=== PATIENT | female | born 1990 | race Caucasian/White ===

== ENCOUNTER 2018-02-09 06:50 | Emergency (ER) | payer OTHER ==
[~2018-02-09] VITALS: Ht 157.5 cm; Wt 93.0 kg
[2018-02-09 06:56] VITALS: BP_SYST 135
[2018-02-09 07:54] VITALS: BP_SYST 136
== END 2018-02-09 07:54 | disposition home or self-care (01) ==
LOC: SED 06:50
DX: Z04.1 Encounter for examination and observation following transport accident (principal); V89.2XXA Person injured in unspecified motor-vehicle accident, traffic, initial encounter; Y93.89 Activity, other specified; Y92.410 Unspecified street and highway as the place of occurrence of the external cause; Y99.8 Other external cause status
CPT/HCPCS: 99283